=== PATIENT | female | born 1980 | race Caucasian/White ===

== ENCOUNTER → 2016-08-05 | Outpatient (CLI) | payer MEDICAID | LOC: WI 07:52 | PROVIDERS: ATTEND Physician Assistant | DX: N63 Unspecified lump in breast (principal) | CPT/HCPCS: 76641; G0204; 77066 ==

== ENCOUNTER 2016-12-22 21:29 | Emergency (ER) | payer SELFPAY ==
[2016-12-22 22:01] VITALS: BP 117/70
[2016-12-22] MEDS ORDERED: MORPHINE SULFATE 10 MG/ML INJ IV ONE (22:57)
[2016-12-22] MEDS ORDERED: LIDOCAINE 1%/EPINEPHRINE INJ 20 ML VIAL INJ ONE (22:57)
[2016-12-22] MEDS ORDERED: KETOROLAC TROMETHAMINE INJ/PF 30 MG/1 ML SDV IV ONE (22:57)
--- NOTE | 2016-12-22 23:04 | ER Document Report ---
ED Animal Bite - General Chief Complaint: Dog Bite Stated Complaint: ANIMAL BITE Time Seen by Provider: 12/22/16 21:39 Notes: The patient is a 36-year-old female, past medical history hypoglycemia, presents after her neighbor's dog bit her multiple times. She has wounds on her right upper arm, left upper arm and right upper leg. Her tetanus is up-to- date. Animal control has already been notified prior to arrival. Patient denies heavy bleeding, tingling, numbness or difficulty moving her extremities. TRAVEL OUTSIDE OF THE [place] IN LAST 30 DAYS: No - Related Data Allergies/Adverse Reactions: No Known Allergies Allergy (Unverified 03/31/11 11:44) Past Medical History - General Information source: Patient - Social History Smoking Status: Unknown if Ever Smoked Family History: Arthritis, CAD, CVA, DM, Malignancy, Thyroid Disfunction. denies: Hyperlipidemia, Hypertension - Past Medical History Cardiac Medical History: Denies: Hx Coronary Artery Disease, Hx Heart Attack, Hx Hypertension Pulmonary Medical History: Denies: Hx Asthma, Hx Bronchitis, Hx COPD, Hx Pneumonia Neurological Medical History: Denies: Hx Cerebrovascular Accident, Hx Seizures Malignancy Medical History: Reports: Hx Cervical Cancer GI Medical History: Reports: Hx Ulcer, Hx Endoscopy Musculoskeltal Medical History: Reports Hx Arthritis - bilateral knees, Reports Hx Musculoskeletal Trauma Psychiatric Medical History: Reports: Hx Depression Traumatic Medical History: Reports: Hx Fractures Past Surgical History: Reports: Hx Genitourinary Surgery - cystoscopy, Hx Hysterectomy. Denies: Hx Pacemaker - Immunizations Hx Diphtheria, Pertussis, Tetanus Vaccination: Yes Review of Systems - Review of Systems Notes: REVIEW OF SYSTEMS: CONSTITUTIONAL: -fevers, -chills EENT: -eye pain, -difficulty swallowing, -nasal congestion CARDIOVASCULAR:-chest pain, -syncope. RESPIRATORY: -cough, -SOB GASTROINTESTINAL: -abdominal pain, - nausea, -vomiting, -diarrhea GENITOURINARY: -dysuria, -hematuria MUSCULOSKELETAL: -back pain, -neck pain SKIN: +animal bites HEMATOLOGIC: -easy bruising or bleeding. LYMPHATIC: -swollen, enlarged glands. NEUROLOGICAL: -altered mental status or loss of consciousness, -headache, - neurologic symptoms PSYCHIATRIC: -anxiety, -depression. ALL OTHER SYSTEMS REVIEWED AND NEGATIVE. Physical Exam - Vital signs Vitals: Temp Pulse Resp BP Pulse Ox 98.2 F 82 16 117/70 92 12/22/16 21:38 12/22/16 21:38 12/22/16 21:38 12/22/16 21:38 12/22/16 21:38 - Notes Notes: PHYSICAL EXAMINATION: GENERAL: Well-appearing, well-nourished and in no acute distress. HEAD: Atraumatic, normocephalic. EYES: Pupils equal round and reactive to light, extraocular movements intact, sclera anicteric, conjunctiva are normal. ENT: nares patent, oropharynx clear without exudates. Moist mucous membranes. NECK: Normal range of motion, supple without lymphadenopathy LUNGS: Breath sounds clear to auscultation bilaterally and equal. No wheezes rales or rhonchi. HEART: Regular rate and rhythm without murmurs ABDOMEN: Soft, nontender, normoactive bowel sounds. No guarding, no rebound. No masses appreciated. EXTREMITIES: Strong distal pulses. Full range of motion of all 4 extremities. NEUROLOGICAL: Cranial nerves grossly intact. Normal speech, normal gait. Normal sensory and motor exams. PSYCH: Normal mood, normal affect. SKIN: Contusion and superficial abrasions on right medial upper arm. Multiple 0.5 lacerations on left lateral upper arm. 2 cm deep laceration of left shoulder. Superficial abrasions of right lateral hip. Course - Re-evaluation Re-evalutation: 911 already contacted animal control prior to patient's arrival to the ER. Patient's wounds cleaned extensively and the one large wound closed loosely with 2 sutures. Will send home on Augmentin with very strict return precautions. Instructed her to contact animal control and return to the ER if there are any signs of rabies in the dog. Her tetanus is up-to-date. No evidence of retained objects. Instructed her to return in 2 days for a wound recheck in 7 days for suture removal. - Vital Signs Vital signs: Temp Pulse Resp BP Pulse Ox 98.2 F 82 16 117/70 92 12/22/16 21:38 12/22/16 21:38 12/22/16 21:38 12/22/16 21:38 12/22/16 21:38 Procedures - Laceration/Wound Repair Left Upper Arm Time completed: 23:11 Wound length (cm): 2 Wound's Depth, Shape: Into muscle, Linear Laceration pre-procedure: Sterile PPE donned, Shur-Clens applied Anesthetic type: 1% Lidocaine w/epi Volume Anesthetic (mLs): 2 Wound explored: Clean Irrigated w/ Saline (mLs): 1,000 Wound Debrided: Extensive Wound Repaired With: Sutures Suture Size/Type: 3:0, Ethilon Number of Sutures: 2 Layer Closure?: No Post-procedure wound care: Sterile dressing applied Post-procedure NV exam normal: Yes Complications: No Discharge - Discharge Clinical Impression: Dog bite Qualifiers: Encounter type: initial encounter Qualified Code(s): W54.0XXA - Bitten by dog, initial encounter Condition: Stable Disposition: HOME, SELF-CARE Additional Instructions: Animal Bites Animal bites are often heavily contaminated with bacteria. In spite of thorough cleansing and proper treatment, these wounds frequently become infected. Bite wounds of the hands are especially prone to complications. Bites are dressed, if possible. Large wounds may require suturing after internal cleansing. Because of infection risk, some large wounds must remain unstitched. Your doctor is trained to advise you on the best treatment for your bite. Call the doctor at once if the wound becomes red, swollen, warm, increasingly painful, or if it begins to drain. Danger signs also include red streaks up the involved extremity, swollen glands in the groin or under the arm , or fever and chills. The risk of rabies from domestic animals is very low. Bats, sick animals, and wild animals may expose you to rabies. The physician, or the health department, will inform you if you will need to receive the rabies vaccine. LACERATION CARE: Your laceration has been sutured to keep the skin edges aligned during healing. The time of suture removal depends on the nature and location of your cut. Please follow the care instructions the doctor has outlined for you and return for further care, according to the schedule you've been given. Keep the wound and dressing clean. Unless you were told otherwise, you may shower daily, blotting the wound dry with a clean, unused towel. At other times, If the dressing gets wet or blood soaked, remove it and blot the wound dry, then reapply a new dressing. Unless you were instructed otherwise, dressings should be changed at least daily. If any signs of infection occur (swelling, redness, drainage, increasing tenderness, red streaks, tender lumps in the armpit or groin above the laceration, or fever), see the doctor immediately. SOAP CLEANSING: Gently wash the wound daily using a mild soap (like Ivory, Phisoderm, Neutrogena). Use warm water, rubbing gently until all debris, ooze, and crusting have been washed from the wound. Allow to dry briefly (about 10 minutes) after cleaning. Repeat this cleansing at least three times a day for the first two days and then once or twice a day. ANTIBIOTIC OINTMENT PROTECTION: Your wounds are such that dressing them is not practical or optional. After cleansing, you should apply a thin coating of antibiotic ointment ( Bacitracin, not Neosporin) to the wounds at least three times daily. This lessens infection risk, and may decrease the amount of scarring. Use a q-tip or dull butter knife, not your finger, to apply this ointment. Any debris or ooze which builds up in the ointment should be gently rubbed off with a sterile gauze pad. Harder crusting may need to be gently scrubbed off with a clean wash cloth with soap and warm water, perhaps applying a warm, wet wash cloth to the wound for ten minutes first. Development of redness, severe itching, or blistering may mean allergy to the ointment. See the doctor. PROPHYLACTIC ANTIBIOTIC: The antibiotics which have been prescribed are designed to decrease the risk of infection. Only certain types of wounds benefit from this -- the typical cut, scrape, or burn DOES NOT require antibiotics. Of course, infection can still occur despite the use of prophylactic antibiotics. Your wound will heal with less chance of an infectious complication if you take the medication as directed. The most important dose is the FIRST dose, so don't delay filling the prescription! FOLLOW-UP CARE: Please return in 2 days for an infection check and dressing change. Your sutures should be removed in 7 days. To facilitate a timely removal of your sutures, you may return to the Emergency Department at [facility]. You do not need to call for an appointment, but the best time to come in for suture removal is early in the morning. If you have been referred to another physician for follow-up care, call that physicians office for an appointment as you were instructed. If you experience a significant change in your laceration, or if you are concerned there may be an infection (swelling, redness, drainage, increasing tenderness, red streaks, tender lumps in the armpit or groin above the laceration, or fever) , return to the Emergency Department immediately re-evaluation. Prescriptions: Amox Tr/Potassium Clavulanate [Augmentin 875-125 Tablet] 1 tab PO BID 10 Days tablet Referrals: BISI HARVEY MD [ACTIVE STAFF] - Follow up as needed
[2016-12-22] MEDS ORDERED: AMOXICILLIN TR/POT CLAVULANATE 250-125 MG TAB PO ONE (23:47)
[2016-12-22] MEDS ORDERED: AMOXICILLIN TR/POT CLAVULANATE 500-125 MG TAB PO ONE (23:47)
[2016-12-22] MEDS ORDERED: BACITRACIN ZINC OINTMENT 15 GM TP ONE (23:47)
== END 2016-12-23 00:08 | disposition home or self-care (01) ==
LOC: ER 21:29
PROC: 0HQCXZZ Repair Left Upper Arm Skin, External Approach (ICD-10-PCS; principal; 2016-12-22)
DX: S41.151A Open bite of right upper arm, initial encounter (principal); S41.152A Open bite of left upper arm, initial encounter; S81.851A Open bite, right lower leg, initial encounter; W54.0XXA Bitten by dog, initial encounter; Z90.710 Acquired absence of both cervix and uterus
CPT/HCPCS: 99282; 96374; 96375; 12031; J3490 ×2; J1885; J2270

== ENCOUNTER 2016-12-26 09:31 | Emergency (ER) | payer SELFPAY ==
[2016-12-26 09:37] VITALS: BP 117/83
[2016-12-26] MEDS ORDERED: OXYCODONE-ACETAMINOPHEN 5-325 MG TABLET PO ONE (10:04)
[2016-12-26] MEDS ORDERED: AMPICILLIN SOD/SULBACTAM 3 GM VIAL IV ONE (10:04)
[2016-12-26] MEDS ORDERED: FLUCONAZOLE 100 MG TABLET PO ONE (10:05)
--- NOTE | 2016-12-26 10:05 | ER Document Report ---
ED General - General Chief Complaint: Wound Recheck Stated Complaint: SUTURE REMOVAL Time Seen by Provider: 12/26/16 09:53 Mode of Arrival: Ambulatory Information source: Patient Notes: 36-year-old female presents with complaints of wound recheck. Pt was bit and scratched by a dog on the 2nd. Pt denies any fevers or chills, notes she is taking her augmentin as prescribed but is getting a yeast infection and is nauseated from it. Patient denies any pus draining from the wound, but does note some yellow discharge on gauze in the mornings TRAVEL OUTSIDE OF THE [place] IN LAST 30 DAYS: No - HPI Onset: Last week Onset/Duration: Persistent Quality of pain: Achy Severity: Mild Pain Level: 1 Associated symptoms: Other Exacerbated by: Movement Relieved by: Denies Similar symptoms previously: Yes Recently seen / treated by doctor: Yes - Related Data Allergies/Adverse Reactions: No Known Allergies Allergy (Unverified 03/31/11 11:44) Past Medical History - Social History Smoking Status: Never Smoker Cigarette use (# per day): No Chew tobacco use (# tins/day): No Smoking Education Provided: No Family History: Arthritis, CAD, CVA, DM, Malignancy, Thyroid Disfunction. denies: Hyperlipidemia, Hypertension Patient has suicidal ideation: No Patient has homicidal ideation: No - Past Medical History Cardiac Medical History: Denies: Hx Coronary Artery Disease, Hx Heart Attack, Hx Hypertension Pulmonary Medical History: Denies: Hx Asthma, Hx Bronchitis, Hx COPD, Hx Pneumonia Neurological Medical History: Denies: Hx Cerebrovascular Accident, Hx Seizures Renal/ Medical History: Denies: Hx Peritoneal Dialysis Malignancy Medical History: Reports: Hx Cervical Cancer GI Medical History: Reports: Hx Ulcer, Hx Endoscopy Musculoskeltal Medical History: Reports Hx Arthritis - bilateral knees, Reports Hx Musculoskeletal Trauma Psychiatric Medical History: Reports: Hx Depression Traumatic Medical History: Reports: Hx Fractures Past Surgical History: Reports: Hx Genitourinary Surgery - cystoscopy, Hx Hysterectomy. Denies: Hx Pacemaker - Immunizations Hx Diphtheria, Pertussis, Tetanus Vaccination: Yes Review of Systems - Review of Systems Notes: REVIEW OF SYSTEMS: CONSTITUTIONAL : Denies fever, chills, or sweats. Denies recent illness. EENT: Denies eye, ear, throat, or mouth pain or symptoms. Denies nasal or sinus congestion or discharge. Denies throat, tongue, or mouth swelling or difficulty swallowing. CARDIOVASCULAR: Denies chest pain. Denies palpitations or racing or irregular heart beat. Denies ankle edema. RESPIRATORY: Denies cough, cold, or chest congestion. Denies shortness of breath, difficulty breathing, or wheezing. GASTROINTESTINAL: Admits to nausea GENITOURINARY: Denies difficulty urinating, painful urination, burning, frequency, blood in urine, or discharge. FEMALE GENITOURINARY: Admits to vaginal itching MUSCULOSKELETAL: Denies back or neck pain or stiffness. Denies joint pain or swelling. SKIN: Admits to dog bite concern for infection HEMATOLOGIC : Denies easy bruising or bleeding. LYMPHATIC: Denies swollen, enlarged glands. NEUROLOGICAL: Denies confusion or altered mental status. Denies passing out or loss of consciousness. Denies dizziness or lightheadedness. Denies headache. Denies weakness or paralysis or loss of use of either side. Denies problems with gait or speech. Denies sensory loss, numbness, or tingling. Denies seizures. PSYCHIATRIC: Denies anxiety or stress. Denies depression, suicidal ideation, or homicidal ideation. ALL OTHER SYSTEMS REVIEWED AND NEGATIVE. PHYSICAL EXAMINATION: GENERAL: Well-appearing, well-nourished and in no acute distress. HEAD: Atraumatic, normocephalic. EYES: Pupils equal round and reactive to light, extraocular movements intact, conjunctiva are normal. ENT: Nares patent, oropharynx clear without exudates. Moist mucous membranes. NECK: Normal range of motion, supple without lymphadenopathy LUNGS: Breath sounds clear to auscultation bilaterally and equal. No wheezes rales or rhonchi. HEART: Regular rate and rhythm without murmurs ABDOMEN: Soft, nontender, nondistended abdomen. No guarding, no rebound. No masses appreciated. Female : deferred Musculoskeletal: Normal range of motion, no pitting or edema. No cyanosis. NEUROLOGICAL: Cranial nerves grossly intact. Normal speech, normal gait. Normal sensory, motor exams PSYCH: Normal mood, normal affect. SKIN: Multiple superficial lacerations abrasions to the left bicep tricep region [address], superficial abrasions contusion to right arm and right buttocks Dictation was performed using [employer] voice recognition software Physical Exam - Vital signs Vitals: Temp Pulse Resp BP Pulse Ox 97.8 F 95 14 117/83 100 10/06/17 09:36 12/26/16 09:36 12/26/16 09:36 12/26/16 09:36 12/26/16 09:36 Course - Re-evaluation Re-evalutation: 12/26/16 10:11 Patient was given a work note for her Ms. days of work secondary to this injury , she will be treated for her yeast infection, she will be given nausea control , pain control. On evaluation of the wounds themselves they appear to be healing well good granulation tissue with mild erythema around each of the wounds, there is no actual pus draining from any of these wounds however there is one on the left bicep region that is approximately 1 cm gap that needs to be closely watched. I do not beleive the sutures are ready to be removed nor are they infected. Patient will be given dose of ampicillin in the emergency department and follow- up in 2 days for reevaluation After performing a Medical Screening Examination, I estimate there is LOW risk for OPEN FRACTURE, COMPARTMENT SYNDROME, TENDON RUPTURE, ACUTE NEUROVASCULAR INJURY, or RETAINED FOREIGN BODY, thus I consider the discharge disposition reasonable. Also, there is no evidence or peritonitis, sepsis, or toxicity. I have reevaluated this patient multiple times and no significant life threatening changes are noted. The patient and I have discussed the diagnosis and risks, and we agree with discharging home with close follow-up with the understanding that symptoms and presentations can change. We also discussed returning to the Emergency Department immediately if new or worsening symptoms occur. We have discussed the symptoms which are most concerning (e.g., changing or worsening pain, fever, numbness, weakness, cool or painful digits) that necessitate immediate return. - Vital Signs Vital signs: Temp Pulse Resp BP Pulse Ox 97.8 F 95 14 117/83 100 12/26/16 09:36 12/26/16 09:36 12/26/16 09:36 12/26/16 09:36 12/26/16 09:36 - Laboratory Result Diagrams: 12/26/16 10:13 Discharge - Discharge Clinical Impression: Yeast infection, Nausea Dog bite Qualifiers: Encounter type: subsequent encounter Qualified Code(s): W54.0XXD - Bitten by dog, subsequent encounter Condition: Stable Disposition: HOME, SELF-CARE Additional Instructions: Follow-up in 2 days for reevaluation of your wounds Return immediately if there is any drainage fevers or any other concerns Prescriptions: Fluconazole [Diflucan] 150 mg PO ONCE PRN #1 tablet PRN Reason: Hydrocodone/Acetaminophen [Home 5-325 mg Tablet] 1 tab PO Q6 #14 tablet Metoclopramide HCl [Reglan 10 mg Tablet] 1 - 2 tab PO Q6 #25 tablet
[2016-12-26 10:24] LABS: ABSOLUTE BASOPHILS # (AUTO) 0.1 10^3/uL (0.0-0.2); ABSOLUTE EOSINOPHILS # (AUTO) 0.2 10^3/uL (0.0-0.6); ABSOLUTE LYMPHOCYTES (AUTO) 2.2 10^3/uL (0.5-4.7); ABSOLUTE MONOCYTES (AUTO) 0.8 10^3/uL (0.1-1.4); ABSOLUTE NEUT (AUTO) 6.5 10^3/uL (1.7-8.2); BASOPHILS % (AUTO) 0.6 % (0-2); EOSINOPHILS % (AUTO) 1.9 % (0-6); HEMATOCRIT 45.1 % (36.0-47.0); HEMOGLOBIN 15.5 g/dL (12.0-15.5); HGB HCT DIFFERENCE 1.4; LYMPHOCYTES % (AUTO) 22.4 % (13-45); MEAN CORPUSCULAR HEMOGLOBIN 33.4 pg (27.0-33.4); MEAN CORPUSCULAR HGB CONC 34.5 g/dL (32.0-36.0); MEAN CORPUSCULAR VOLUME 97 fl (80-97); MONOCYTES % (AUTO) 7.8 % (3-13); RED BLOOD COUNT 4.66 10^6/uL (3.72-5.28); RED CELL DISTRIBUTION WIDTH 12.8 % (11.5-14.0); SEGMENTED NEUTROPHILS % (AUTO) 67.3 % (42-78); WHITE BLOOD COUNT 9.7 10^3/uL (4.0-10.5)
== END 2016-12-26 11:37 | disposition home or self-care (01) ==
LOC: ER 09:31
DX: Z48.02 Encounter for removal of sutures (principal); B37.9 Candidiasis, unspecified; R11.0 Nausea; W54.0XXD Bitten by dog, subsequent encounter
CPT/HCPCS: 99283; 96365; 36415; 87040; 85025; J0295